=== PATIENT | female | born 1990 | race Caucasian/White ===

== ENCOUNTER 2017-02-16 16:13 | Emergency (ER) | payer OTHER ==
[2017-02-16 18:23] VITALS: BP 116/75
== END 2017-02-16 18:23 | disposition home or self-care (01) ==
LOC: ED 16:13
DX: J02.9 Acute pharyngitis, unspecified (principal); M79.1 Myalgia; Z88.2 Allergy status to sulfonamides; Z88.5 Allergy status to narcotic agent
CPT/HCPCS: J1100; J1885

== ENCOUNTER 2017-02-22 00:52 | Emergency (ER) | payer OTHER ==
[2017-02-22 02:13] LABS: CALCIUM 8.2 mg/dL (8.5-10.1); CARBON DIOXIDE 26.7 mmol/L (21-32); CHLORIDE SERUM 107 mmol/L (98-107); CREATININE SERUM 0.8 mg/dL (0.6-1.0); GFR1 > 60 mL/min; GLUCOSE SERUM 105 mg/dL (74-106); POTASSIUM SERUM 4.3 mmol/L (3.5-5.1); SODIUM SERUM 140 mmol/L (136-145)
[2017-02-22 02:14] LABS: PLATELET COUNT 365 x10^3mcL (130-400); RED CELL DISTRIBUTION WIDTH 12.1 % (11.5-14.5)
[2017-02-22 02:18] LABS: ALBUMIN 3.1 g/dL (3.4-5.0); ALKALINE PHOSPHATASE 76 U/L (46-116); ALT/SGPT 25 U/L (14-59); AST/SGOT 8 U/L (15-37); BILIRUBIN TOTAL 0.22 mg/dL (0.20-1.00); TOTAL PROTEIN, SERUM 6.1 g/dL (6.4-8.2)
[2017-02-22 02:28] LABS: BASOPHIL % 3.3 % (0-2)
[2017-02-22 03:27] VITALS: BP 89/51
== END 2017-02-22 03:27 | disposition home or self-care (01) ==
LOC: ED 00:52
PROVIDERS: Emergency Medicine
DX: K52.9 Noninfective gastroenteritis and colitis, unspecified (principal); Z88.1 Allergy status to other antibiotic agents; Z88.5 Allergy status to narcotic agent; Z98.890 Other specified postprocedural states
CPT/HCPCS: J1885; J2550; J3010

== ENCOUNTER 2017-02-23 22:25 | Emergency (ER) | payer OTHER ==
[2017-02-23 23:05] LABS: BASOPHIL % 1.5 % (0-2); PLATELET COUNT 342 x10^3mcL (130-400); RED CELL DISTRIBUTION WIDTH 12.8 % (11.5-14.5)
[2017-02-23 23:06] LABS: microscopic required? NO
[2017-02-23 23:13] LABS: CALCIUM 9.6 mg/dL (8.5-10.1); CARBON DIOXIDE 29.7 mmol/L (21-32); CHLORIDE SERUM 103 mmol/L (98-107); GFR1 > 60 mL/min; GLUCOSE SERUM 93 mg/dL (74-106); POTASSIUM SERUM 3.7 mmol/L (3.5-5.1); SODIUM SERUM 141 mmol/L (136-145)
[2017-02-23 23:18] LABS: ALBUMIN 3.8 g/dL (3.4-5.0); ALKALINE PHOSPHATASE 87 U/L (46-116); ALT/SGPT 24 U/L (14-59); AST/SGOT 12 U/L (15-37); BILIRUBIN TOTAL 0.2 mg/dL (0.20-1.00); MAGNESIUM 1.7 mg/dL (1.8-2.4); TOTAL PROTEIN, SERUM 7.3 g/dL (6.4-8.2)
[2017-02-23 23:22] LABS: UA SPECIFIC GRAVITY 1.015 (1.005-1.035); urine erythrocyte NEGATIVE (NEGATIVE)
[2017-02-23 23:45] VITALS: BP 118/67
== END 2017-02-24 | disposition home or self-care (01) ==
LOC: ED 22:25
PROVIDERS: Emergency Medicine
DX: R42 Dizziness and giddiness (principal); R53.1 Weakness; R03.0 Elevated blood-pressure reading, without diagnosis of hypertension; R07.89 Other chest pain; F41.9 Anxiety disorder, unspecified; K52.9 Noninfective gastroenteritis and colitis, unspecified; Z88.2 Allergy status to sulfonamides; Z88.5 Allergy status to narcotic agent
CPT/HCPCS: J7030; Q0092

== ENCOUNTER 2017-04-28 00:44 | Emergency (ER) | payer OTHER ==
[2017-04-28 00:55] VITALS: BP 124/83
== END 2017-04-28 01:31 | disposition left against medical advice (07) ==
LOC: ED 00:44
DX: Z53.21 Procedure and treatment not carried out due to patient leaving prior to being seen by health care provider (principal)

== ENCOUNTER 2017-07-19 05:07 | Emergency (ER) | payer OTHER ==
[2017-07-19 05:46] VITALS: BP 133/62
== END 2017-07-19 05:46 | disposition left against medical advice (07) ==
LOC: ED 05:07
DX: M25.531 Pain in right wrist (principal); M25.532 Pain in left wrist; M54.2 Cervicalgia; Z53.21 Procedure and treatment not carried out due to patient leaving prior to being seen by health care provider

== ENCOUNTER 2017-08-06 09:04 | Emergency (ER) | payer OTHER ==
[2017-08-06 09:20] VITALS: BP 119/73
[2017-08-06 10:48] LABS: microscopic required? NO
[2017-08-06 11:23] LABS: urine erythrocyte NEGATIVE (NEGATIVE)
== END 2017-08-06 10:10 | disposition left against medical advice (07) ==
LOC: ED 09:04
PROVIDERS: Emergency Medicine
DX: M54.9 Dorsalgia, unspecified (principal); M79.7 Fibromyalgia; F17.200 Nicotine dependence, unspecified, uncomplicated; Z88.2 Allergy status to sulfonamides; Z88.6 Allergy status to analgesic agent; F17.210 Nicotine dependence, cigarettes, uncomplicated
CPT/HCPCS: 99406

== ENCOUNTER 2017-12-11 13:14 | Emergency (ER) | payer OTHER ==
[~2017-12-11] VITALS: Ht 154.9 cm; Wt 75.3 kg
[2017-12-11 13:17] VITALS: BP 137/91; Ht 154.9 cm; Wt 75.3 kg
== END 2017-12-11 15:27 | disposition left against medical advice (07) ==
LOC: ED 13:14
DX: Z53.21 Procedure and treatment not carried out due to patient leaving prior to being seen by health care provider (principal)

== ENCOUNTER 2018-07-04 02:40 | Emergency (ER) | payer SELFPAY ==
[~2018-07-04] VITALS: Ht 154.9 cm; Wt 75.5 kg
[2018-07-04 02:47] VITALS: BP 122/78; Ht 154.9 cm; Wt 75.5 kg
== END 2018-07-04 04:00 | disposition home or self-care (01) ==
LOC: ED 02:40
DX: R07.89 Other chest pain (principal); Z88.2 Allergy status to sulfonamides; Z88.5 Allergy status to narcotic agent; Z98.890 Other specified postprocedural states; Z98.51 Tubal ligation status

== ENCOUNTER 2018-09-16 17:44 | Emergency (ER) | payer MEDICAID ==
[~2018-09-16] VITALS: Ht 160 cm; Wt 72.7 kg
[2018-09-16 17:56] VITALS: BP 118/68; Ht 160 cm; Wt 72.7 kg
== END 2018-09-16 18:30 | disposition home or self-care (01) ==
LOC: ED 17:44
DX: N39.3 Stress incontinence (female) (male) (principal); F17.210 Nicotine dependence, cigarettes, uncomplicated; Z98.51 Tubal ligation status; Z98.890 Other specified postprocedural states; Z88.2 Allergy status to sulfonamides; Z88.5 Allergy status to narcotic agent
CPT/HCPCS: 82962

== ENCOUNTER 2018-09-26 02:25 | Emergency (ER) | payer MEDICAID ==
[~2018-09-26] VITALS: Ht 154.9 cm; Wt 72.1 kg
[2018-09-26 02:30] VITALS: Ht 154.9 cm; Wt 72.1 kg
[2018-09-26 04:35] VITALS: BP 117/65
== END 2018-09-26 04:35 | disposition home or self-care (01) ==
LOC: ED 02:25
DX: M54.2 Cervicalgia (principal); F41.9 Anxiety disorder, unspecified; Z88.2 Allergy status to sulfonamides; Z98.890 Other specified postprocedural states; Z98.51 Tubal ligation status; Z13.89 Encounter for screening for other disorder

== ENCOUNTER 2018-10-02 06:52 | Emergency (ER) | payer MEDICAID ==
[~2018-10-02] VITALS: Ht 154.9 cm; Wt 72.1 kg
[2018-10-02 07:05] VITALS: BP 137/83; Ht 154.9 cm; Wt 72.1 kg
== END 2018-10-02 07:37 | disposition left against medical advice (07) ==
LOC: ED 06:52
DX: Z53.21 Procedure and treatment not carried out due to patient leaving prior to being seen by health care provider (principal)

== ENCOUNTER 2020-04-16 02:19 | Emergency (ER) | payer OTHER ==
[~2020-04-16] VITALS: Ht 154.9 cm; Wt 64.4 kg
[2020-04-16 02:24] VITALS: Ht 154.9 cm; Wt 64.4 kg
[2020-04-16 03:22] VITALS: BP 118/81
== END 2020-04-16 03:22 | disposition home or self-care (01) ==
LOC: ED 02:19
DX: H10.89 Other conjunctivitis (principal); Z98.890 Other specified postprocedural states; Z88.2 Allergy status to sulfonamides; Z88.5 Allergy status to narcotic agent

== ENCOUNTER 2020-11-25 15:36 | Emergency (ER) | payer OTHER ==
[~2020-11-25] VITALS: Ht 152.4 cm; Wt 63.5 kg
[2020-11-25 16:00] VITALS: Ht 152.4 cm; Wt 63.5 kg
[2020-11-25 17:08] VITALS: BP 126/77
== END 2020-11-25 17:08 | disposition home or self-care (01) ==
LOC: ED 15:36
DX: N39.0 Urinary tract infection, site not specified (principal); Z98.890 Other specified postprocedural states; Z98.51 Tubal ligation status; Z88.5 Allergy status to narcotic agent; Z88.2 Allergy status to sulfonamides
CPT/HCPCS: 87491; 87591; J0696